=== PATIENT | female | born 1960 | race Caucasian/White ===

== ENCOUNTER 2016-06-05 00:57 | Emergency (ER) | payer OTHER ==
[2016-06-05] MEDS ORDERED: PREDNISONE 20 MG TABLET ONE (01:54)
== END 2016-06-05 02:07 | disposition home or self-care (01) ==
LOC: ED 00:57
DX: J40 Bronchitis, not specified as acute or chronic (principal); F17.210 Nicotine dependence, cigarettes, uncomplicated
CPT/HCPCS: 99283 ×2; J7512